=== PATIENT | female | born 2000 | race Caucasian/White ===

== ENCOUNTER 2023-11-15 14:18 | Observation (INO) | payer OTHER ==
[2023-11-15 16:06] LABS: Hematocrit 39.4 % (35-47); Hemoglobin 12.9 g/dL (12.0-16.0); Mean Cell Volume 92.7 fL (78-100); Mean Corpuscular Hemoglobin 30.4 pg (26-32); Mean Corpuscular Hgb Concent. 32.7 g/dL (32-36); Mean Platelet Volume 10.6 fL (7.5-11.0); Platelet Count 230 x10^3/uL (150-450); Red Blood Count 4.25 x10^6/uL (4.1-5.4); Red Cell Distribution Width 13.2 % (11.5-14.0)
[2023-11-15] MEDS: Lactated Ringers 1,000 ML IV ONE (16:08)
[2023-11-15 16:09] LABS: Appearance Cloudy (Clear); Bacteria None Seen /HPF (None Seen); Bilirubin Negative (Negative); Blood Negative (Negative); Epithelial Cells Rare /HPF (None Seen); Glucose, Urine Negative (Negative); Hyaline Casts NONE SEEN /LPF (0-2); Ketones Negative (Negative); Leukocyte Esterase Trace (Negative); Nitrite Negative (Negative); Protein,Urine Dip Negative (Negative); RBC 0-2 /HPF (0-5); Specific Gravity <=1.005 (1.005-1.030); Urobilinogen 0.2 mg/dL (0.2)
[2023-11-15 16:10] LABS: ADD URINE CULTURE? NO (NO)
[2023-11-15 16:19] LABS: Uric Acid 3.6 mg/dL (2.6-6.0)
[2023-11-15 16:20] LABS: ALBUMIN 4.2 g/dL (3.5-5.0); ANION GAP 11.6 MEQ/L (5-15); BILIRUBIN,TOTAL 0.4 mg/dL (0.2-1.3); Calcium 9.4 mg/dL (8.4-10.2); Creatinine 1 0.48 mg/dL (0.52-1.04); EST GLOMERULAR FILTRATION RATE 138.1 ML/MIN; Potassium 3.9 mmol/L (3.5-5.1); Total Protein 7.4 g/dL (6.3-8.2)
[2023-11-15 17:08] LABS: Creatinine, Urine Random 8.3 mg/dl; Protein Creatinine Ratio, Ran. 1.81 mg/mg (0.0-0.15)
--- NOTE | 2023-11-15 19:40 | PCM.HP ---
History of Present Illness - Chief Complaint Chief Complaint: FAll Date: 11/15/23 History of Present Illness: is a 23 year old female. She presented to the [facility] at the request of the office due to patient fall that ocurred around 1030 am. She was feeling well when she arrived and had no other complaints just wanted to get checked out. While being evaluated she had 2 elevated BP 140's/ 80's. She was also having some uterine irritability and some contractions. She denies any h/a, RUq pain, Vision disturbances. She denies any LOF, some increased vaginal discharge no vaginal Bleeding. and good FM. - Review of Systems Constitutional: No Fever, No Chills Eyes: No Symptoms Ears, Nose, & Throat: No Symptoms Respiratory: No Cough, No Short Of Breath Cardiac: No Chest Pain, No Edema, No Syncope Genitourinary Symptoms: No Dysuria Musculoskeletal: No Back Pain, No Neck Pain Skin: No Rash Neurological: No Dizziness, No Focal Weakness, No Sensory Changes Psychological: No Symptoms Endocrine: No Symptoms Hematologic/Lymphatic: No Symptoms Immunological/Allergic: No Symptoms Additional Findings: vaginal discharge Medications & Allergies Allergies/Adverse Reactions: Allergies Allergy/AdvReac Type Severity Reaction Status Date / Time No Known Drug Allergies Allergy Unverified 11/15/23 19:28 - Past Medical History Neurological History: No Pertinent History, Alzheimer's Disease, Dementia, Epilepsy, Migraines, Paralysis, Peripheral Neuropathy, Seizures, Stroke, TIA, Other ENT History: No Pertinent History, Cataracts, Glaucoma, Macular Degeneration, Ot her Cardiac History: No Pertinent History, Aneurysm, Angina, Arrhythmia, Congenital Heart Disease, Congestive Heart Failure, Coronary Artery Disease, Deep Vein Thrombosis, High Cholesterol, Hypertension, Myocardial Infarction (CT), Peripheral Vascular Disease, Other Respiratory History: No Pertinent History, Asthma, Bronchitis, CHF, COPD, Emphysema, Lung Cancer, Pneumonia, Pulmonary Embolism, Sleep Apnea, Tuberculosis, Other Endocrine Medical History: No Pertinent History, Crawley's Disease, Adrenal Insufficiency, Diabetes Type I, Diabetes Type II, Hyperthyroidism, Hypoglycemia, Hypothyroidism, Liver Disease, Thyroid Cancer, Other Musculoskelatal History: No Pertinent History, Arthritis, Bone Cancer, Degenerative Disk Disease, Fibromyalgia, Fractures, Muscular Dystrophy, Osteoarthritis, Osteoporosis, Rheumatoid Arthritis, Other GI Medical History: No Pertinent History, Cirrhosis, Colitis, Colorectal Cancer, Crohns Disease, Diverticulitis, Diverticulosis, Esophageal Disorder, GERD, Gallbladder Disease, GI Bleed, Hemorrhoids, Hepatitis, Hernia, Irritable Bowel, Liver Cancer, Pancreatitis, Polyps, Stomach Cancer, Ulcer, Other History: No Pertinent History, Bladder Cancer, Dialysis, Kidney Cancer, Renal Disease, Other Pyscho-Social History: No Pertinent History, Anxiety, Attention Deficit Disorder, Bipolar, Depression, Eating Disorders, Panic Disorder, Other - Female History Are you now?: Yes (33w 5 d) - Past Surgical History Past Surgical History: No - Social History Smoking Status: Never smoker - Social Determinants of Health Will the patient participate in the screening: Yes Do you worry about a steady place to live?: No Do you have any problems with any of the following?: No known problems In the past 12 months,have you had to go without utilities?: No Have you or anyone in your house had to go without enough: No Transportation Issues: No Has anyone in your support network made you feel unsafe?: No Does the patient want assistance with any of the above?: No - Physical Exam Vital Signs: Vital Signs - 24 hr Temp Pulse Resp BP BP Pulse Ox 11/15/23 17:02 98.2 F 18 141/84 100 11/15/23 16:00 83 18 128/73 100 11/15/23 15:50 91 H 18 139/88 100 11/15/23 15:30 87 19 141/83 100 11/15/23 14:35 98.2 F 18 141/84 100 General Appearance: no apparent distress, alert Neurologic Exam: alert, oriented x 3, cooperative, normal mood/affect, nml cerebellar function, nml station & gait, sensation nml, No motor deficits Eye Exam: PERRL/EOMI, eyes nml inspection Ears, Nose, Throat Exam: normal ENT inspection, pharynx normal, moist mucous membranes Respiratory Exam: normal breath sounds, lungs clear, No respiratory distress Cardiovascular Exam: regular rate/rhythm, normal heart sounds, normal peripheral pulses Gastrointestinal/Abdomen Exam: soft, normal bowel sounds, No tenderness, No mass Pelvic Exam: normal external exam, vaginal discharge, other (Cervical exam closed/thick/-3) Extremity Exam: normal inspection, normal range of motion, pelvis stable Skin Exam: normal color, warm, dry, No rash Results - Labs Lab/Micro Results: Lab Results-Last 24 Hours 11/15/23 11/15/23 11/15/23 Range/Units 16:00 16:00 16:00 WBC 12.0 H (4.0-10.5) x10^3/uL RBC 4.25 (4.1-5.4) x10^6/uL Hgb 12.9 (12.0-16.0) g/dL Hct 39.4 (35-47) % MCV 92.7 (78-100) fL MCH 30.4 (26-32) pg MCHC 32.7 (32-36) g/dL RDW 13.2 (11.5-14.0) % Plt Count 230 (150-450) x10^3/uL MPV 10.6 (7.5-11.0) fL Sodium 136 L (137-145) mmol/L Potassium 3.9 (3.5-5.1) mmol/L Chloride 107 (98-107) mmol/L Carbon Dioxide 22 (22-30) mmol/L Anion Gap 11.6 (5-15) MEQ/L BUN 8 (7-17) mg/dL Creatinine 0.48 L (0.52-1.04) mg/dL Estimated GFR 138.1 ML/MIN Glucose 82 (74-106) mg/dL Uric Acid 3.6 (2.6-6.0) mg/dL Calcium 9.4 (8.4-10.2) mg/dL Total Bilirubin 0.40 (0.2-1.3) mg/dL AST 23 (14-36) U/L ALT 22 (0-35) U/L Alkaline Phosphatase 171 H (38-126) U/L Lactate Dehydrogenase 179 (120-246) U/L Serum Total Protein 7.4 (6.3-8.2) g/dL Albumin 4.2 (3.5-5.0) g/dL Urine Color (Yellow) Urine Appearance (Clear) Urine pH (4.6-8.0) Ur Specific Callaway (1.005-1.030) Urine Protein (Negative) Urine Glucose (UA) (Negative) mg/dL Urine Ketones (Negative) Urine Blood (Negative) Urine Nitrite (Negative) Urine Bilirubin (Negative) Urine Urobilinogen (0.2) mg/dL Ur Leukocyte Esterase (Negative) U Hyaline Cast (Auto) (0-2) /LPF Urine Microscopic RBC (0-5) /HPF Urine Microscopic WBC (0-5) /HPF Ur Epithelial Cells (None Seen) /HPF Urine Bacteria (None Seen) /HPF Urine Culture Reflexed (NO) Ur Random Creatinine mg/dl U Random Total Protein (<12) mg/dl U Brilliant Prot/Creat Ratio (0.0-0.15) mg/mg 11/15/23 11/15/23 Range/Units 16:04 16:47 WBC (4.0-10.5) x10^3/uL RBC (4.1-5.4) x10^6/uL Hgb (12.0-16.0) g/dL Hct (35-47) % MCV (78-100) fL MCH (26-32) pg MCHC (32-36) g/dL RDW (11.5-14.0) % Plt Count (150-450) x10^3/uL MPV (7.5-11.0) fL Sodium (137-145) mmol/L Potassium (3.5-5.1) mmol/L Chloride (98-107) mmol/L Carbon Dioxide (22-30) mmol/L Anion Gap (5-15) MEQ/L BUN (7-17) mg/dL Creatinine (0.52-1.04) mg/dL Estimated GFR ML/MIN Glucose (74-106) mg/dL Uric Acid (2.6-6.0) mg/dL Calcium (8.4-10.2) mg/dL Total Bilirubin (0.2-1.3) mg/dL AST (14-36) U/L ALT (0-35) U/L Alkaline Phosphatase (38-126) U/L Lactate Dehydrogenase (120-246) U/L Serum Total Protein (6.3-8.2) g/dL Albumin (3.5-5.0) g/dL Urine Color Yellow (Yellow) Urine Appearance Cloudy A (Clear) Urine pH 7.0 (4.6-8.0) Ur Specific Callaway <=1.005 (1.005-1.030) Urine Protein Negative (Negative) Urine Glucose (UA) Negative (Negative) mg/dL Urine Ketones Negative (Negative) Urine Blood Negative (Negative) Urine Nitrite Negative (Negative) Urine Bilirubin Negative (Negative) Urine Urobilinogen 0.2 (0.2) mg/dL Ur Leukocyte Esterase Trace A (Negative) U Hyaline Cast (Auto) NONE SEEN (0-2) /LPF Urine Microscopic RBC 0-2 (0-5) /HPF Urine Microscopic WBC 3-5 (0-5) /HPF Ur Epithelial Cells Rare (None Seen) /HPF Urine Bacteria None Seen (None Seen) /HPF Urine Culture Reflexed NO (NO) Ur Random Creatinine 8.3 mg/dl U Random Total Protein 15.0 (<12) mg/dl U Brilliant Prot/Creat Ratio 1.81 H (0.0-0.15) mg/mg Assessment/Plan (1) with 33 completed weeks gestation Current Visit: Yes Status: Acute Assessment & Plan: Will continue to monitor for PTL with continuous monitoring. continue vitamin Code(s): Z3A.33 - 33 WEEKS GESTATION OF (2) Elevated blood-pressure reading without diagnosis of hypertension Current Visit: Yes Status: Acute Assessment & Plan: Patient had 2 elevated BP in mild range and Pre-eclampsia labs were done. All with in normal limits however PCR was reported as 1.8 with negative proteinuria on her UA. Clinically this does not really make sense and without symptoms and normalized BP after the first couple of BP after arriving, I am going to continue to monitor and collect a 24 hour urine for protein. I performed a speculum vaginal exam for possible Rupture of membranes as this could cause elevated PCR. She has also been janna and vag panel was performed and cervical exam showed she was closed. Will continue to monitor she states she does not really feel pain occasional tightening Code(s): R03.0 - ELEVATED BLOOD-PRESSURE READING, W/O DIAGNOSIS OF HTN (3) uterine contractions Current Visit: Yes Status: Acute Assessment & Plan: Will continue to monitor at this time there is no cervical change. If contractions worsen will consider tocolytic and steroids she is over 32 weeks mag not indicated for neuroprotection but could be used as tocolytic if needed for transfer. Code(s): O47.00 - FALSE LABOR BEFORE 37 COMPLETED WEEKS OF GEST, UNSP TRI
[2023-11-15 19:51] LABS: AMNISURE TEST RESULTS NEGATIVE (NEGATIVE)
[2023-11-15 20:39] LABS: Candida Group NOT DETECTED (NEGATIVE); Candida glab/krus NOT DETECTED (NEGATIVE)
[2023-11-16] MEDS: BENADRYL 25 MG CAPSULE PO PRN (01:05)
[2023-11-16 07:36] VITALS: RESP 18; TEMP 98; O2SAT 100
[2023-11-16] MEDS: TYLENOL EXTRA STRENGTH 500 MG PO PRN (13:55)
[2023-11-16 15:31] VITALS: BP 130/79; PULSE 100
--- NOTE | 2023-11-16 17:35 | PCM.NOTE ---
Date and Time: 11/16/23 1729 Subjective Assessment: Pt doing well today and was seen around 1230 pm. She is feeling good movement no ctx, no pre-eclampsia symptoms. No VB, VD. All testing performed last night was negative and discussed with patient. She is still undergoing 24 hour urine collection done at 1735 Objective Exam General Appearance: no apparent distress, alert Neurologic Exam: alert, oriented x 3, cooperative, normal mood/affect, nml cerebellar function, sensation nml, No motor deficits Skin Exam: normal color, warm, dry Respiratory Exam: normal breath sounds, lungs clear, No respiratory distress Cardiovascular Exam: regular rate/rhythm, normal heart sounds Extremity Exam: normal inspection (FHT Cat 1 [place]man: None), normal range of motion OBJECTIVE DATA Vital Signs: Vital Signs - 24 hr Temp Pulse Resp BP BP Pulse Ox 11/16/23 15:30 100 H 18 130/79 100 11/16/23 14:00 18 11/16/23 13:00 98.0 F 98 H 18 118/63 11/16/23 12:00 98.0 F 98 H 18 118/63 11/16/23 11:00 98.0 F 98 H 18 118/63 100 11/16/23 10:00 98.0 F 100 11/16/23 09:00 98.0 F 100 11/16/23 08:00 98.0 F 88 18 125/57 100 11/16/23 07:35 98.0 F 88 18 120/57 100 11/16/23 07:00 16 98 11/16/23 06:00 16 98 11/16/23 05:00 16 98 11/16/23 04:00 16 101/53 98 11/16/23 03:00 79 18 101/53 98 11/16/23 01:58 18 11/16/23 01:00 62 18 98 11/16/23 00:00 62 18 98 11/15/23 23:47 62 18 121/76 98 11/15/23 23:00 16 83 L 11/15/23 22:07 16 83 L 11/15/23 22:00 16 83 L 11/15/23 21:00 16 83 L 11/15/23 20:49 16 83 L 11/15/23 20:27 16 83 L 11/15/23 19:40 16 138/73 83 L 11/15/23 19:25 95 H 16 132/75 11/15/23 19:10 98.3 F 16 132/79 99 Pain Assessment - Last Documented Pain Intensity 4 Pain Scale Used 0-10 Pain Scale Intake and Output: Intake & Output 11/14/23 11/15/23 11/16/23 11/17/23 11:59 11:59 11:59 11:59 Intake Total 5900 Output Total 2700 400 Balance 3200 -400 Weight 77.111 kg Lab Results: Lab Results-Last 24 Hours 11/15/23 Range/Units 19:30 Vaginal Caroline Group NOT DETECTED (NEGATIVE) Caroline species NOT DETECTED (NEGATIVE) T. vaginalis (PCR) NOT DETECTED (NEGATIVE) Bact vaginosis (PCR) NEGATIVE (NEGATIVE) Assessment/Plan (1) with 33 completed weeks gestation Current Visit: Yes Status: Acute Assessment & Plan: Pt is having no contractions will continue Q12 hour NST. Code(s): Z3A.33 - 33 WEEKS GESTATION OF (2) Elevated blood-pressure reading without diagnosis of hypertension Current Visit: Yes Status: Acute Assessment & Plan: 24 hour urine is in progress up at 1735 BP had been normotensive since after 11/15 no further elevated BP. She had 3 total Elevated BP on 11/15 1435 141/84, 1530 141/83, 1720 141/84 Will continue to monitor NSt changed to 2 x daily. Will await resutls of 24 hour urine for plan Of note shortly after the patient was evaluated she did have a headache and asked for tylenol. The patients headache resolved Code(s): R03.0 - ELEVATED BLOOD-PRESSURE READING, W/O DIAGNOSIS OF HTN (3) uterine contractions Current Visit: Yes Status: Acute Assessment & Plan: Pt stopped janna and toco remains quiet at this time Code(s): O47.00 - FALSE LABOR BEFORE 37 COMPLETED WEEKS OF GEST, UNSP TRI
[2023-11-16 18:43] LABS: 24 HR TOT. PROTEIN CALCULATION 0.253 g/Day (0.04-0.23)
== END 2023-11-16 18:55 | disposition home or self-care (01) ==
LOC: OB 14:18 → OB.NST 14:19 → EDSTATUS 14:23
PROVIDERS: ADMIT Family Medicine; ATTEND Family Medicine
DX: Z34.03 Encounter for supervision of normal first pregnancy, third trimester (principal); Z3A.33 33 weeks gestation of pregnancy
CPT/HCPCS: 36415; 80053; 81001; 81050; 82570; 83615; 84112; 84156; 84550; 85027; 87481; 87661; 87801; A9270-GY

== ENCOUNTER 2023-12-07 07:38 | Inpatient (IN) | payer OTHER ==
[2023-12-07] MEDS ORDERED: Nubain 10 MG/ML IV PRN (22:00)
[2023-12-07] MEDS ORDERED: TYLENOL EXTRA STRENGTH 500 MG PO PRN (22:00)
[2023-12-07] MEDS ORDERED: STADOL 2 MG IV PRN (22:00)
[2023-12-07] MEDS ORDERED: Zofran 4 MG/2 ML VIAL IV PRN ×2 (22:00→23:55)
[2023-12-07 23:21] LABS: Absolute Neutrophil Ct (ANC) 7.04 x10^3/uL (1.4-6.9); BASOPHIL % 0.2 % (0.0-0.4); Basophil (Absolute #) 0.02 x10^3/uL (0-0.4); Hematocrit 37.5 % (35-47); Hemoglobin 12.1 g/dL (12.0-16.0); IMMATURE GRAN # 0.07 x10^3u/L (0.00-0.03); IMMATURE GRAN % 0.7 % (0.00-0.4); Lymphocyte (Absolute #) 1.92 x10^3/uL (1.0-4.6); Lymphocytes % 19.5 % (24.0-44.0); Mean Cell Volume 92.4 fL (78-100); Mean Corpuscular Hemoglobin 29.8 pg (26-32); Mean Corpuscular Hgb Concent. 32.3 g/dL (32-36); Mean Platelet Volume 10.9 fL (7.5-11.0); Monocyte (Absolute #) 0.68 x10^3/uL (0.0-1.3); Monocytes % 6.9 % (0.0-12.0); Neutrophil % 71.7 % (36.0-66.0); Platelet Count 228 x10^3/uL (150-450); Red Blood Count 4.06 x10^6/uL (4.1-5.4); Red Cell Distribution Width 13.5 % (11.5-14.0); White Blood Count 9.8 x10^3/uL (4.0-10.5)
[2023-12-07] MEDS ORDERED: BENADRYL 25 MG CAPSULE PO PRN (23:32)
[2023-12-07 23:35] LABS: ALBUMIN 3.5 g/dL (3.5-5.0); ANION GAP 12.6 MEQ/L (5-15); BILIRUBIN,TOTAL 0.3 mg/dL (0.2-1.3); Calcium 9.1 mg/dL (8.4-10.2); Creatinine 1 0.64 mg/dL (0.52-1.04); EST GLOMERULAR FILTRATION RATE 128.9 ML/MIN; Potassium 3.9 mmol/L (3.5-5.1); Total Protein 6.5 g/dL (6.3-8.2); Uric Acid 4.2 mg/dL (2.6-6.0)
[2023-12-08] MEDS: Lactated Ringers 1,000 ML IV SCH
[2023-12-08 00:03] LABS: ABO TYPING A; Antibody Screen NEGATIVE (NEGATIVE); RH TYPING POSITIVE
[2023-12-08 02:09] LABS: Amphetamine,Urine SEE SEPARATE REPORT (NEGATIVE); Barbiturate,Urine SEE SEPARATE REPORT (NEGATIVE); Benzodiazepine,Urine SEE SEPARATE REPORT (NEGATIVE); Cocaine,Urine SEE SEPARATE REPORT (NEGATIVE); Methadone,Urine SEE SEPARATE REPORT (NEGATIVE); Opiate,Urine SEE SEPARATE REPORT (NEGATIVE); PCP,Urine SEE SEPARATE REPORT (NEGATIVE); THC,Urine SEE SEPARATE REPORT (NEGATIVE)
[2023-12-08] MEDS: TYLENOL 325 MG PO PRN (13:36)
--- NOTE | 2023-12-08 14:25 | PCM.HP ---
History of Present Illness - Chief Complaint Chief Complaint: IUP Date: 12/08/23 History of Present Illness: is a 23 year old female. She is at 37 weeks arrived for medical induction of labor secondary to Pre-eclampsia without severe features. She was diagnosed around 35 weeks and has been managed as an outpatient until 37 weeks. She had 24 hour urine of 480. She has had occasional headache and treated with tylenol and resolved. No other vision changes or RUQ pain. Good FM has had scant spotting from vaginal exam. - Review of Systems Constitutional: No Fever, No Chills Eyes: No Symptoms Ears, Nose, & Throat: No Symptoms Respiratory: No Cough, No Short Of Breath Cardiac: No Chest Pain, No Edema, No Syncope Abdominal/Gastrointestinal: Other (), No Abdominal Pain, No Nausea, No Vomiting, No Diarrhea Genitourinary Symptoms: No Dysuria Musculoskeletal: No Back Pain, No Neck Pain Skin: No Rash Neurological: No Dizziness, No Focal Weakness, No Sensory Changes Psychological: No Symptoms Endocrine: No Symptoms Hematologic/Lymphatic: No Symptoms Immunological/Allergic: No Symptoms Medications & Allergies Home Medications: Home Medication List Pnv 119/Iron Fum/Folic Acid [ 19 Tablet] 1 each PO DAILY 11/15/23 [History Confirmed 12/07/23] Allergies/Adverse Reactions: Allergies Allergy/AdvReac Type Severity Reaction Status Date / Time No Known Drug Allergies Allergy Verified 11/30/23 14:18 - Past Medical History Neurological History: No Pertinent History, Alzheimer's Disease, Dementia, Epilepsy, Migraines, Paralysis, Peripheral Neuropathy, Seizures, Stroke, TIA, Other ENT History: No Pertinent History, Cataracts, Glaucoma, Macular Degeneration, Other Cardiac History: No Pertinent History, Aneurysm, Angina, Arrhythmia, Congenital Heart Disease, Congestive Heart Failure, Coronary Artery Disease, Deep Vein Thrombosis, High Cholesterol, Hypertension, Myocardial Infarction ([place]), Peripheral Vascular Disease, Other Respiratory History: No Pertinent History, Asthma, Bronchitis, CHF, COPD, Emphysema, Lung Cancer, Pneumonia, Pulmonary Embolism, Sleep Apnea, Tuberculosis, Other Endocrine Medical History: No Pertinent History, Hitchcock's Disease, Adrenal Insufficiency, Diabetes Type I, Diabetes Type II, Hyperthyroidism, Hypoglycemia, Hypothyroidism, Liver Disease, Thyroid Cancer, Other Musculoskelatal History: No Pertinent History, Arthritis, Bone Cancer, Degenerative Disk Disease, Fibromyalgia, Fractures, Muscular Dystrophy, Osteoarthritis, Osteoporosis, Rheumatoid Arthritis, Other GI Medical History: No Pertinent History, Cirrhosis, Colitis, Colorectal Cancer, Crohns Disease, Diverticulitis, Diverticulosis, Esophageal Disorder, GERD, Gallbladder Disease, GI Bleed, Hemorrhoids, Hepatitis, Hernia, Irritable Bowel, Liver Cancer, Pancreatitis, Polyps, Stomach Cancer, Ulcer, Other History: No Pertinent History, Bladder Cancer, Dialysis, Kidney Cancer, Renal Disease, Other Pyscho-Social History: No Pertinent History, Anxiety, Attention Deficit Disorder, Bipolar, Depression, Eating Disorders, Panic Disorder, Other Reproductive Disorders: No Pertinent History - Female History Expected Date of Delivery: 12/29/23 - Past Surgical History Past Surgical History: No - Social History Smoking Status: Never smoker Exposure to second hand smoke: No Alcohol: None Drug Use: none - Social Determinants of Health Will the patient participate in the screening: Yes Do you worry about a steady place to live?: No Do you have any problems with any of the following?: No known problems In the past 12 months,have you had to go without utilities?: No Have you or anyone in your house had to go without enough: No Transportation Issues: No Has anyone in your support network made you feel unsafe?: No Does the patient want assistance with any of the above?: No - Physical Exam Vital Signs: Vital Signs - 24 hr Temp Pulse Resp BP BP Pulse Ox 12/08/23 12:00 98.0 F 90 18 144/79 144/79 100 12/08/23 11:00 18 12/08/23 10:00 86 18 132/72 132/72 12/08/23 08:00 97.7 F 84 18 122/82 122/82 100 12/08/23 07:00 81 18 12/08/23 06:00 81 18 12/08/23 05:42 81 18 108/58 12/08/23 05:00 81 18 12/08/23 04:00 98.1 F 78 18 142/88 142/88 12/08/23 03:00 98.1 F 78 18 12/08/23 02:20 73 127/62 12/08/23 02:00 18 12/08/23 01:03 105 H 18 12/08/23 01:00 98.1 F 82 18 125/87 125/87 12/08/23 00:30 85 18 117/60 12/08/23 00:12 105 H 18 12/08/23 00:00 80 18 118/62 12/07/23 23:45 76 113/60 12/07/23 23:30 85 18 115/66 12/07/23 23:15 88 18 129/65 12/07/23 23:00 105 H 18 128/66 12/07/23 22:45 98.1 F 100 H 18 General Appearance: no apparent distress Neurologic Exam: alert, oriented x 3, cooperative, normal mood/affect, nml c erebellar function, nml station & gait, sensation nml, No motor deficits Ears, Nose, Throat Exam: normal ENT inspection, TMs normal, pharynx normal, moist mucous membranes Neck Exam: normal inspection, non-tender, supple, full range of motion Respiratory Exam: normal breath sounds, lungs clear, No respiratory distress Cardiovascular Exam: regular rate/rhythm, normal heart sounds, normal peripheral pulses Gastrointestinal/Abdomen Exam: soft, normal bowel sounds, No tenderness, No mass Pelvic Exam: other (SVE 1-2/80%/-1) Back Exam: normal inspection, normal range of motion, No CVA tenderness, No vertebral tenderness Extremity Exam: normal inspection, normal range of motion, pelvis stable Skin Exam: normal color, warm, dry, No rash Results - Labs Lab/Micro Results: Lab Results-Last 24 Hours 12/07/23 12/07/23 12/07/23 Range/Units 22:59 23:18 23:18 WBC 9.8 (4.0-10.5) x10^3/uL RBC 4.06 L (4.1-5.4) x10^6/uL Hgb 12.1 (12.0-16.0) g/dL Hct 37.5 (35-47) % MCV 92.4 (78-100) fL MCH 29.8 (26-32) pg MCHC 32.3 (32-36) g/dL RDW 13.5 (11.5-14.0) % Plt Count 228 (150-450) x10^3/uL MPV 10.9 (7.5-11.0) fL Gran % 71.7 H (36.0-66.0) % Immature Gran % (Auto) 0.7 H (0.00-0.4) % Nucleat RBC Rel Count 0.0 (0.00-0.1) % Eos # (Auto) 0.10 (0-0.5) x10^3/uL Immature Gran # (Auto) 0.07 H (0.00-0.03) x10^3u/L Absolute Lymphs (auto) 1.92 (1.0-4.6) x10^3/uL Absolute Monos (auto) 0.68 (0.0-1.3) x10^3/uL Absolute Nucleated RBC 0.00 (0.00-0.01) x10^3u/L Lymphocytes % 19.5 L (24.0-44.0) % Monocytes % 6.9 (0.0-12.0) % Eosinophils % 1.0 (0.00-5.0) % Basophils % 0.2 (0.0-0.4) % Absolute Granulocytes 7.04 H (1.4-6.9) x10^3/uL Basophils # 0.02 (0-0.4) x10^3/uL Sodium 136 (135-145) mmol/L Potassium 3.9 (3.5-5.1) mmol/L Chloride 105 (98-107) mmol/L Carbon Dioxide 22 (22-30) mmol/L Anion Gap 12.6 (5-15) MEQ/L BUN 13 (7-17) mg/dL Creatinine 0.64 (0.52-1.04) mg/dL Estimated GFR 128.9 ML/MIN Glucose 92 (74-106) mg/dL Uric Acid 4.2 (2.6-6.0) mg/dL Calcium 9.1 (8.4-10.2) mg/dL Total Bilirubin 0.30 (0.2-1.3) mg/dL AST 24 (14-36) U/L ALT 18 (0-35) U/L Alkaline Phosphatase 222 H (38-126) U/L Lactate Dehydrogenase 163 (120-246) U/L Serum Total Protein 6.5 (6.3-8.2) g/dL Albumin 3.5 (3.5-5.0) g/dL Urine Opiates Level SEE SEPARATE REPORT (NEGATIVE) Ur Methadone SEE SEPARATE REPORT (NEGATIVE) Urine Barbiturates SEE SEPARATE REPORT (NEGATIVE) Ur Phencyclidine (PCP) SEE SEPARATE REPORT (NEGATIVE) Urine Amphetamine SEE SEPARATE REPORT (NEGATIVE) U Benzodiazepine Level SEE SEPARATE REPORT (NEGATIVE) Urine Cocaine SEE SEPARATE REPORT (NEGATIVE) Urine Marijuana (THC) SEE SEPARATE REPORT (NEGATIVE) ABO Group Rh Factor Antibody Screen (NEGATIVE) 12/07/23 Range/Units 23:18 WBC (4.0-10.5) x10^3/uL RBC (4.1-5.4) x10^6/uL Hgb (12.0-16.0) g/dL Hct (35-47) % MCV (78-100) fL MCH (26-32) pg MCHC (32-36) g/dL RDW (11.5-14.0) % Plt Count (150-450) x10^3/uL MPV (7.5-11.0) fL Gran % (36.0-66.0) % Immature Gran % (Auto) (0.00-0.4) % Nucleat RBC Rel Count (0.00-0.1) % Eos # (Auto) (0-0.5) x10^3/uL Immature Gran # (Auto) (0.00-0.03) x10^3u/L Absolute Lymphs (auto) (1.0-4.6) x10^3/uL Absolute Monos (auto) (0.0-1.3) x10^3/uL Absolute Nucleated RBC (0.00-0.01) x10^3u/L Lymphocytes % (24.0-44.0) % Monocytes % (0.0-12.0) % Eosinophils % (0.00-5.0) % Basophils % (0.0-0.4) % Absolute Granulocytes (1.4-6.9) x10^3/uL Basophils # (0-0.4) x10^3/uL Sodium (135-145) mmol/L Potassium (3.5-5.1) mmol/L Chloride (98-107) mmol/L Carbon Dioxide (22-30) mmol/L Anion Gap (5-15) MEQ/L BUN (7-17) mg/dL Creatinine (0.52-1.04) mg/dL Estimated GFR ML/MIN Glucose (74-106) mg/dL Uric Acid (2.6-6.0) mg/dL Calcium (8.4-10.2) mg/dL Total Bilirubin (0.2-1.3) mg/dL AST (14-36) U/L ALT (0-35) U/L Alkaline Phosphatase (38-126) U/L Lactate Dehydrogenase (120-246) U/L Serum Total Protein (6.3-8.2) g/dL Albumin (3.5-5.0) g/dL Urine Opiates Level (NEGATIVE) Ur Methadone (NEGATIVE) Urine Barbiturates (NEGATIVE) Ur Phencyclidine (PCP) (NEGATIVE) Urine Amphetamine (NEGATIVE) U Benzodiazepine Level (NEGATIVE) Urine Cocaine (NEGATIVE) Urine Marijuana (THC) (NEGATIVE) ABO Group A Rh Factor POSITIVE Antibody Screen NEGATIVE (NEGATIVE) Assessment/Plan (1) with 37 weeks completed gestation Current Visit: Yes Status: Acute Code(s): Z3A.37 - 37 WEEKS GESTATION OF (2) Pre-eclampsia Current Visit: Yes Status: Acute Assessment & Plan: Pt admitted last night for Medical induction of labor due to pre-eclampsia without severe features. She is now s/p Cytotec orally x 4. She is janna every 3 -4 minutes rating them as a 2/10. SVE 1-2/80/-1 change from my examine yesterday in the office. BP have been stable some in mild range no severe symptoms or features. Tristar cervical ripening balloon placed with 80ml/80ml taped to leg. Pt tolerated well. FHT reviewed and CAt 1 baseline 130. Will start Pitocin around 4 pm. discussed progress with patient and her . Questions answered. Pre-eclampsia labs reviewed and normal HGb 12.1 Code(s): O14.90 - UNSPECIFIED PRE-ECLAMPSIA, UNSPECIFIED TRIMESTER
[2023-12-08] MEDS ORDERED: Nubain 10 MG/ML IV PRN (15:53)
[2023-12-08] MEDS: Phenergan 25 MG INJ*** 12.5 MG in Sodium Chloride 0.9% 100 ML IV PRN (16:19)
[2023-12-08] MEDS: STADOL 2 MG IV PRN (16:19)
[2023-12-08] MEDS: PITOCIN 30 UNITS/ LR 500 ML 30 UNITS/500 ML PLAST..BAG IV SCH (17:02)
[2023-12-08] MEDS ORDERED: MOTRIN 400 MG PO PRN (22:00)
[2023-12-08] MEDS ORDERED: TYLENOL EXTRA STRENGTH 500 MG PO PRN (22:00)
[2023-12-08] MEDS ORDERED: Anucort-HC SUPPOSITORY PR PRN (22:00)
[2023-12-08] MEDS ORDERED: Docusate Sodium 100 MG PO SCH (22:00)
[2023-12-08] MEDS ORDERED: LANSINOH 40 GM TOP PRN (22:00)
[2023-12-08] MEDS ORDERED: Mylicon 80MG PO PRN (22:00)
[2023-12-08] MEDS ORDERED: Dulcolax 10 MG SUPP PR PRN (22:00)
[2023-12-08] MEDS ORDERED: Dermoplast Spray TP PRN (22:00)
[2023-12-08] MEDS ORDERED: FERREX 150 PO SCH (22:00)
--- NOTE | 2023-12-08 22:03 | PCM.NOTE ---
Date and Time: 12/08/232155 Subjective Assessment: Pt is 23 yo G1 at 37 weeks under going medical indcution of labor for Pre- eclampsia. She is now S/P Cytotec 25 po x 4 doses. Then cervical ripening balloon was placed around 3 pm. She was started o Pitocin at up to 6 milliunits. She has had 2 doses of Stadol with Iv phenergan for pain. She was not ready for her epidural. She tolerated the balloon well. She is also having some bloody show. She denies any pre-eclampsia symptoms. Objective Exam Pelvic Exam: other (SVE: The vaginal balloon was deflated and the uterine balloon was in the vagina. the balloon was removed. Examination revealed the cervix was 4-5 cm/80%/-1 station. BBOW palpated. FHT 130 cat 1 [place] Q2 -5 irregular.) Objective Data Vital Signs: Vital Signs - 24 hr Temp Pulse Resp BP BP Pulse Ox 12/08/23 21:42 98.1 F 82 18 142/83 12/08/23 21:01 98.1 F 82 18 142/83 12/08/23 21:00 98.1 F 78 18 121/60 12/08/23 20:59 98.1 F 82 18 142/83 12/08/23 20:30 98.1 F 67 18 131/81 12/08/23 20:00 98.1 F 78 18 134/76 12/08/23 19:30 98.1 F 82 18 142/83 12/08/23 19:00 59 L 18 123/78 12/08/23 18:30 59 L 18 123/78 12/08/23 18:00 69 18 124/76 124/76 100 12/08/23 16:00 98.3 F 80 18 120/65 120/65 94 L 12/08/23 14:00 79 18 134/81 134/81 98 12/08/23 12:00 98.0 F 90 18 144/79 144/79 100 12/08/23 11:00 18 12/08/23 10:00 86 18 132/72 132/72 12/08/23 08:00 97.7 F 84 18 122/82 122/82 100 12/08/23 07:00 81 18 12/08/23 06:00 81 18 12/08/23 05:42 81 18 108/58 12/08/23 05:00 81 18 12/08/23 04:00 98.1 F 78 18 142/88 142/88 12/08/23 03:00 98.1 F 78 18 12/08/23 02:20 73 127/62 12/08/23 02:00 18 12/08/23 01:03 105 H 18 12/08/23 01:00 98.1 F 82 18 125/87 125/87 12/08/23 00:30 85 18 117/60 12/08/23 00:12 105 H 18 12/08/23 00:00 80 18 118/62 12/07/23 23:45 76 113/60 12/07/23 23:30 85 18 115/66 12/07/23 23:15 88 18 129/65 12/07/23 23:00 105 H 18 128/66 12/07/23 22:45 98.1 F 100 H 18 Pain Assessment - Last Documented Pain Intensity [Lower] 4 Pain Intensity 6 Pain Scale Used 0-10 Pain Scale Intake and Output: Intake & Output 12/06/23 12/07/23 12/08/23 12/09/23 11:59 11:59 11:59 11:59 Weight 78.925 kg Lab Results: Lab Results-Last 24 Hours 12/07/23 12/07/23 12/07/23 Range/Units 22:59 23:18 23:18 WBC 9.8 (4.0-10.5) x10^3/uL RBC 4.06 L (4.1-5.4) x10^6/uL Hgb 12.1 (12.0-16.0) g/dL Hct 37.5 (35-47) % MCV 92.4 (78-100) fL MCH 29.8 (26-32) pg MCHC 32.3 (32-36) g/dL RDW 13.5 (11.5-14.0) % Plt Count 228 (150-450) x10^3/uL MPV 10.9 (7.5-11.0) fL Gran % 71.7 H (36.0-66.0) % Immature Gran % (Auto) 0.7 H (0.00-0.4) % Nucleat RBC Rel Count 0.0 (0.00-0.1) % Eos # (Auto) 0.10 (0-0.5) x10^3/uL Immature Gran # (Auto) 0.07 H (0.00-0.03) x10^3u/L Absolute Lymphs (auto) 1.92 (1.0-4.6) x10^3/uL Absolute Monos (auto) 0.68 (0.0-1.3) x10^3/uL Absolute Nucleated RBC 0.00 (0.00-0.01) x10^3u/L Lymphocytes % 19.5 L (24.0-44.0) % Monocytes % 6.9 (0.0-12.0) % Eosinophils % 1.0 (0.00-5.0) % Basophils % 0.2 (0.0-0.4) % Absolute Granulocytes 7.04 H (1.4-6.9) x10^3/uL Basophils # 0.02 (0-0.4) x10^3/uL Sodium 136 (135-145) mmol/L Potassium 3.9 (3.5-5.1) mmol/L Chloride 105 (98-107) mmol/L Carbon Dioxide 22 (22-30) mmol/L Anion Gap 12.6 (5-15) MEQ/L BUN 13 (7-17) mg/dL Creatinine 0.64 (0.52-1.04) mg/dL Estimated GFR 128.9 ML/MIN Glucose 92 (74-106) mg/dL Uric Acid 4.2 (2.6-6.0) mg/dL Calcium 9.1 (8.4-10.2) mg/dL Total Bilirubin 0.30 (0.2-1.3) mg/dL AST 24 (14-36) U/L ALT 18 (0-35) U/L Alkaline Phosphatase 222 H (38-126) U/L Lactate Dehydrogenase 163 (120-246) U/L Serum Total Protein 6.5 (6.3-8.2) g/dL Albumin 3.5 (3.5-5.0) g/dL Urine Opiates Level SEE SEPARATE REPORT (NEGATIVE) Ur Methadone SEE SEPARATE REPORT (NEGATIVE) Urine Barbiturates SEE SEPARATE REPORT (NEGATIVE) Ur Phencyclidine (PCP) SEE SEPARATE REPORT (NEGATIVE) Urine Amphetamine SEE SEPARATE REPORT (NEGATIVE) U Benzodiazepine Level SEE SEPARATE REPORT (NEGATIVE) Urine Cocaine SEE SEPARATE REPORT (NEGATIVE) Urine Marijuana (THC) SEE SEPARATE REPORT (NEGATIVE) ABO Group Rh Factor Antibody Screen (NEGATIVE) 12/07/23 Range/Units 23:18 WBC (4.0-10.5) x10^3/uL RBC (4.1-5.4) x10^6/uL Hgb (12.0-16.0) g/dL Hct (35-47) % MCV (78-100) fL MCH (26-32) pg MCHC (32-36) g/dL RDW (11.5-14.0) % Plt Count (150-450) x10^3/uL MPV (7.5-11.0) fL Gran % (36.0-66.0) % Immature Gran % (Auto) (0.00-0.4) % Nucleat RBC Rel Count (0.00-0.1) % Eos # (Auto) (0-0.5) x10^3/uL Immature Gran # (Auto) (0.00-0.03) x10^3u/L Absolute Lymphs (auto) (1.0-4.6) x10^3/uL Absolute Monos (auto) (0.0-1.3) x10^3/uL Absolute Nucleated RBC (0.00-0.01) x10^3u/L Lymphocytes % (24.0-44.0) % Monocytes % (0.0-12.0) % Eosinophils % (0.00-5.0) % Basophils % (0.0-0.4) % Absolute Granulocytes (1.4-6.9) x10^3/uL Basophils # (0-0.4) x10^3/uL Sodium (135-145) mmol/L Potassium (3.5-5.1) mmol/L Chloride (98-107) mmol/L Carbon Dioxide (22-30) mmol/L Anion Gap (5-15) MEQ/L BUN (7-17) mg/dL Creatinine (0.52-1.04) mg/dL Estimated GFR ML/MIN Glucose (74-106) mg/dL Uric Acid (2.6-6.0) mg/dL Calcium (8.4-10.2) mg/dL Total Bilirubin (0.2-1.3) mg/dL AST (14-36) U/L ALT (0-35) U/L Alkaline Phosphatase (38-126) U/L Lactate Dehydrogenase (120-246) U/L Serum Total Protein (6.3-8.2) g/dL Albumin (3.5-5.0) g/dL Urine Opiates Level (NEGATIVE) Ur Methadone (NEGATIVE) Urine Barbiturates (NEGATIVE) Ur Phencyclidine (PCP) (NEGATIVE) Urine Amphetamine (NEGATIVE) U Benzodiazepine Level (NEGATIVE) Urine Cocaine (NEGATIVE) Urine Marijuana (THC) (NEGATIVE) ABO Group A Rh Factor POSITIVE Antibody Screen NEGATIVE (NEGATIVE) Assessment/Plan (1) with 37 weeks completed gestation Current Visit: Yes Status: Acute Code(s): Z3A.37 - 37 WEEKS GESTATION OF (2) Pre-eclampsia Current Visit: Yes Status: Acute Code(s): O14.90 - UNSPECIFIED PRE- ECLAMPSIA, UNSPECIFIED TRIMESTER
[2023-12-09] MEDS ORDERED: Ephedrine Sulfate 50 MG/ML IV PRN (00:58)
[2023-12-09] MEDS: Lactated Ringers 1,000 ML IV ONE (01:00)
[2023-12-09] MEDS: FENTANYL 2 MCG-BUPIV 0.125%-NS 250 ML Epidur 250 ML EPIDURAL SCH (01:00)
[2023-12-09 03:13] LABS: Appearance Clear (Clear); Bacteria None Seen /HPF (None Seen); Bilirubin Negative (Negative); Blood Negative (Negative); Epithelial Cells None Seen /HPF (None Seen); Glucose, Urine Negative (Negative); Hyaline Casts NONE SEEN /LPF (0-2); Ketones 40 (Negative); Leukocyte Esterase Negative (Negative); Nitrite Negative (Negative); Ph 6.5 (4.6-8.0); Protein,Urine Dip Negative (Negative); RBC 0-2 /HPF (0-5); Urobilinogen 0.2 mg/dL (0.2)
[2023-12-09 03:15] LABS: ADD URINE CULTURE? NO (NO)
--- NOTE | 2023-12-09 07:52 | PCM.NOTE ---
Date and Time: 12/09/23746 Subjective Assessment: Pt seen and examined. She is doing well comfortable with Epidural. denies Headach, RUQ pain or vision changes. Bp stable Pitocin on 18 milliunits/min Objective Exam Pelvic Exam: other (SVE: 6cm/90%/-1 -0 FHT: 140 Cat 1 [place] 2 AROM performed and IUPC placed.) Objective Data Vital Signs: Vital Signs - 24 hr Temp Pulse Resp BP BP Pulse Ox 12/09/23 06:59 98.4 F 102 H 18 111/59 12/09/23 06:43 98.4 F 73 18 101/54 12/09/23 06:42 98.4 F 83 18 109/53 12/09/23 06:35 98.4 F 83 18 109/53 12/09/23 06:30 98.4 F 83 18 109/53 12/09/23 06:00 98.4 F 94 H 18 126/60 12/09/23 05:30 97 H 18 111/57 12/09/23 05:00 72 18 110/55 12/09/23 04:35 98.1 F 87 18 12/09/23 04:30 98.1 F 87 18 99/49 12/09/23 04:05 98.1 F 87 18 99/49 12/09/23 03:45 98.1 F 84 18 100/50 12/09/23 03:35 98.1 F 93 H 18 129/71 12/09/23 03:10 98.1 F 93 H 18 129/71 12/09/23 03:00 98.1 F 93 H 18 129/71 12/09/23 02:53 98.1 F 93 H 18 129/71 12/09/23 02:30 98.1 F 98 H 16 129/71 134/69 93 L 12/09/23 02:27 112 H 18 135/73 94 L 12/09/23 02:24 101 H 16 135/66 12/09/23 02:20 106 H 18 127/58 94 L 12/09/23 02:13 108 H 16 117/58 96 12/09/23 02:10 109 H 16 125/63 100 12/09/23 02:07 118 H 16 101/69 95 12/09/23 02:04 92 H 16 133/70 100 12/09/23 02:02 102 H 16 132/67 99 12/09/23 02:00 98.1 F 93 H 18 129/71 12/09/23 01:59 94 H 18 134/64 100 12/09/23 01:56 102 H 18 130/61 100 12/09/23 01:53 100 H 18 145/65 99 12/09/23 01:51 113 H 16 136/72 100 12/09/23 01:30 98.1 F 93 H 18 129/71 12/09/23 01:00 98.1 F 78 18 134/82 12/09/23 00:35 98.1 F 78 18 134/82 12/09/23 00:30 98.1 F 82 18 12/09/23 00:09 98.1 F 82 18 12/09/23 00:08 98.1 F 82 18 12/09/23 00:05 98.1 F 82 18 12/09/23 00:00 98.4 F 76 18 118/69 12/08/23 23:49 98.1 F 82 18 12/08/23 23:35 98.1 F 82 18 12/08/23 23:30 98.1 F 82 18 12/08/23 23:00 98.1 F 82 18 12/08/23 22:45 98.1 F 82 18 12/08/23 22:40 98.1 F 82 18 12/08/23 22:03 98.1 F 82 18 142/83 12/08/23 22:00 69 132/84 12/08/23 21:55 98.1 F 82 18 142/83 12/08/23 21:42 98.1 F 82 18 142/83 12/08/23 21:30 74 18 125/64 12/08/23 21:01 98.1 F 82 18 142/83 12/08/23 21:00 98.1 F 78 18 121/60 12/08/23 20:59 98.1 F 82 18 142/83 12/08/23 20:30 98.1 F 67 18 131/81 12/08/23 20:00 98.1 F 78 18 134/76 12/08/23 19:30 98.1 F 82 18 142/83 12/08/23 19:00 59 L 18 123/78 12/08/23 18:30 59 L 18 123/78 12/08/23 18:00 69 18 124/76 124/76 100 12/08/23 16:00 98.3 F 80 18 120/65 120/65 94 L 12/08/23 14:00 79 18 134/81 134/81 98 12/08/23 12:00 98.0 F 90 18 144/79 144/79 100 12/08/23 11:00 18 12/08/23 10:00 86 18 132/72 132/72 12/08/23 08:00 97.7 F 84 18 122/82 122/82 100 Pain Assessment - Last Documented Pain Intensity [Lower] 4 Pain Intensity 2 Pain Scale Used 0-10 Pain Scale Intake and Output: Intake & Output 12/06/23 12/07/23 12/08/23 12/09/23 11:59 11:59 11:59 11:59 [place] 26118 Output Total 1050 Balance 8985 Weight 78.925 kg Lab Results: Lab Results-Last 24 Hours 12/09/23 Range/Units 03:04 Urine Color Yellow (Yellow) Urine Appearance Clear (Clear) Urine pH 6.5 (4.6-8.0) Ur Specific [place] 1.010 (1.005-1.030) Urine Protein Negative (Negative) Urine Glucose (UA) Negative (Negative) mg/dL Urine Ketones 40 A (Negative) Urine Blood Negative (Negative) Urine Nitrite Negative (Negative) Urine Bilirubin Negative (Negative) Urine Urobilinogen 0.2 (0.2) mg/dL Ur Leukocyte Esterase Negative (Negative) U Hyaline Cast (Auto) NONE SEEN (0-2) /LPF Urine Microscopic RBC 0-2 (0-5) /HPF Urine Microscopic WBC 3-5 (0-5) /HPF Ur Epithelial Cells None Seen (None Seen) /HPF Urine Bacteria None Seen (None Seen) /HPF Urine Culture Reflexed NO (NO) Assessment/Plan (1) with 37 weeks completed gestation Current Visit: Yes Status: Acute Code(s): Z3A.37 - 37 WEEKS GESTATION OF (2) Pre-eclampsia Current Visit: Yes Status: Acute Code(s): O14.90 - UNSPECIFIED PRE- ECLAMPSIA, UNSPECIFIED TRIMESTER
[2023-12-09] MEDS ORDERED: Adacel Vial IM ONE (10:00)
[2023-12-09] MEDS ORDERED: M-M-R II Vaccine With Diluent SQ ONE (10:00)
[2023-12-09] MEDS ORDERED: XYLOCAINE 1% HCL 20 ML MDV IJ PRN (11:17)
[2023-12-09] MEDS ORDERED: Mylicon 80MG PO PRN (12:45)
--- NOTE | 2023-12-09 12:57 | OP ---
OB OP NOTE - OPERATIVE NOTE Surgery Date: 12/09/23 Surgery Time: 12:16 PREOPERATIVE DIAGNOSIS: at 37 and 1. Pre-eclampsia without severe features. POST OPERATIVE DIAGNOSIS: same Procedure: Spntaneous Vaginal Delivery Surgeon: KIMBERLY GUILLEN ANESTHESIA: Epidural by Stephane Obregon ESTIMATED BLOOD LOSS: 75 ml CONDITION: Stable COMPLICATIONS: none SPECIMEN: none HISTORY - HISTORY HISTORY: HISTORY: 23 yo G1 Now P1 who was admitted late on 12/06 to start Medical induction of labor for Pre-eclampsia without severe features. Pre-eclampsia was diagnosed around 35 weeks and she was monitored as outpatient until 37 weeks. She has had mild range BP no severe symptoms. And a 24 hour urine protein was 480. She has had other normal labs and has been followed with outpatient labs weeekly along with twice weekly testing. No other complications of . Her induction was started with Cytotec Po 25 mcg and she had 4 doses. Followed by cervical ripening balloon placed around 3 pm until about 1000 pm last night. She was 4-5 cm after Cevical ripening balloon was removed and she had been on Pitocin at 6 milliunits. The Pitocin was stopped and then she showered and cleaned up was re started at 2340, the patient progressed to 6 cm by 730 am and AROM was performed clear fluid. IUPC was placed. The patinet progressed to completely dilated at 1125 and +1 station. She started pushing at 1151. FINDINGS - FINDINGS FINDINGS: FINDINGS: Female infant delivered OA, Clear Fluid Placenta delivered intact, and was inspected and noted to be intact 3 V cord. APgars 9/9 weight 6-15 3140 gms DESCRIPTION OF PROCEDURE - DESCRIPTION OF PROCEDURE DESCRIPTION OF PROCEDURE: DESCRIPTION OF PROCEDURE: The patient was placed in stirrups and she started pushing at 1151 she continued to push to and then I put on sterile gown and prepped the area. The pt continued to push and the head delivered OA followed by the right anterior shoulder then the left and then the body. The infant was placed to the mother's abdomen and the infant was suctioned both mouth and nares and dried by the nursing staff. The cord was then doubly clamped and then cut by the Rayo CARSON. Pitocin was started for active management of the 3rd stage of labor. The placenta delivered without complications. The vaginal vault was inspected there were bilateral 1st degree labial lacerations right > left. Right labial lac was repaired with 3-0 monocryl in running fashion and there was a 1st degree small perineal lac that was repaired with a figure of 8 suture. Apgars were 9/9 both mom and baby are doing well. Pt's BP remains stable and has been normotensive since epidural no severe range BP's. Weight 6-15 3140 gms.
[2023-12-09] MEDS: TUCKS TP PRN (15:51)
[2023-12-09] MEDS: LANSINOH 40 GM TOP PRN (15:51)
[2023-12-09] MEDS: Dermoplast Spray TP PRN (15:52)
[2023-12-09] MEDS: MOTRIN 400 MG PO PRN (16:53)
[2023-12-09 23:51] VITALS: RESP 18
[2023-12-09] MEDS: Docusate Sodium 100 MG PO SCH (23:52)
[2023-12-10] MEDS: TYLENOL EXTRA STRENGTH 500 MG PO PRN (01:51)
[2023-12-10 05:55] LABS: Absolute Neutrophil Ct (ANC) 9.03 x10^3/uL (1.4-6.9); BASOPHIL % 0.2 % (0.0-0.4); Basophil (Absolute #) 0.03 x10^3/uL (0-0.4); Eosinophil % 1.3 % (0.00-5.0); Eosinophil (Absolute #) 0.16 x10^3/uL (0-0.5); Hematocrit 36.1 % (35-47); Hemoglobin 11.6 g/dL (12.0-16.0); IMMATURE GRAN # 0.06 x10^3u/L (0.00-0.03); IMMATURE GRAN % 0.5 % (0.00-0.4); Lymphocyte (Absolute #) 2.32 x10^3/uL (1.0-4.6); Lymphocytes % 18.5 % (24.0-44.0); Mean Cell Volume 92.6 fL (78-100); Mean Corpuscular Hemoglobin 29.7 pg (26-32); Mean Corpuscular Hgb Concent. 32.1 g/dL (32-36); Mean Platelet Volume 10.7 fL (7.5-11.0); Monocyte (Absolute #) 0.93 x10^3/uL (0.0-1.3); Monocytes % 7.4 % (0.0-12.0); Neutrophil % 72.1 % (36.0-66.0); Platelet Count 202 x10^3/uL (150-450); Red Cell Distribution Width 14.1 % (11.5-14.0); White Blood Count 12.5 x10^3/uL (4.0-10.5)
[2023-12-10 10:21] VITALS: O2SAT 99
[2023-12-10] MEDS: Adacel Vial IM ONE (10:37)
--- NOTE | 2023-12-10 13:07 | PCM.DS ---
Discharge Summary Date of Admission: 12/08/23 07:38 Date of Discharge: 12/10/2023 Admitting Physician: KIMEBRLY GUILLEN DO Consults: Consults on Case 12/09/23 00:59 Notify Anesthesia Provider PRN 12/09/23 12:46 Notify Physician ROUTINE Primary Care Provider: KIMBERLY GUILLEN DO Allergies Allergies No Known Drug Allergies Allergy (Verified 11/30/23 14:18) Hospital Summary - Hospital Course Hospital Course: Pt is a 23 yo G1 now p1 who presented at 37 weeks for Medical induction of labor secondary to pre-eclampsia without severe features. The patient recieived Cytotec x 4 then cervical ripening balloon, and Pitocin and requsted Labor epidural around 2 am on 12/09/2023. ARom was performed around 0745 12/08 and patient progressed to delivery at 1216. She had uncomplicated Female [place] 6-15 Apgars 9/9. Pre-eclampsia labs on admittsion were normal Ante hgb 12.1 discharge HGb 11.6 Discharge BP 124/80. Pt stable and desires discharge. Pt is Breast feeding well baby latching well. Baby doing well and has been discharged by Dr. Pinto. Discharge medications Colace and Ibuprofen. Dis charge instructions given to patient. - Vitals & Intake/Output Vital Signs: Vital Signs Temperature 97.5 F 12/10/23 10:00 Pulse Rate 80 12/10/23 10:00 Respiratory Rate 18 12/10/23 10:00 Blood Pressure 124/80 12/10/23 10:00 O2 Sat by Pulse Oximetry 99 12/10/23 10:00 Intake & Output: Intake & Output 12/08/23 12/09/23 12/10/23 12/11/23 11:59 11:59 11:59 11:59 Intake Total 70775 1400 Output Total 1050 Balance 9105 1400 Weight 78.925 kg - Lab Result Diagrams: 12/10/23 05:51 12/07/23 23:18 Lab Results-Last 24 Hrs: Lab Results-Last 24 Hours 12/10/23 Range/Units 05:51 WBC 12.5 H (4.0-10.5) x10^3/uL RBC 3.90 L (4.1-5.4) x10^6/uL Hgb 11.6 L (12.0-16.0) g/dL Hct 36.1 (35-47) % MCV 92.6 (78-100) fL MCH 29.7 (26-32) pg MCHC 32.1 (32-36) g/dL RDW 14.1 H (11.5-14.0) % Plt Count 202 (150-450) x10^3/uL MPV 10.7 (7.5-11.0) fL Gran % 72.1 H (36.0-66.0) % Immature Gran % (Auto) 0.5 H (0.00-0.4) % Nucleat RBC Rel Count 0.0 (0.00-0.1) % Eos # (Auto) 0.16 (0-0.5) x10^3/uL Immature Gran # (Auto) 0.06 H (0.00-0.03) x10^3u/L Absolute Lymphs (auto) 2.32 (1.0-4.6) x10^3/uL Absolute Monos (auto) 0.93 (0.0-1.3) x10^3/uL Absolute Nucleated RBC 0.00 (0.00-0.01) x10^3u/L Lymphocytes % 18.5 L (24.0-44.0) % Monocytes % 7.4 (0.0-12.0) % Eosinophils % 1.3 (0.00-5.0) % Basophils % 0.2 (0.0-0.4) % Absolute Granulocytes 9.03 H (1.4-6.9) x10^3/uL Basophils # 0.03 (0-0.4) x10^3/uL Discharge Exam General Appearance: no apparent distress, alert Neurologic Exam: alert, oriented x 3, cooperative, normal mood/affect, nml cerebellar function, sensation nml, No motor deficits Eye Exam: PERRL, EOMI, eyes nml inspection Respiratory Exam: normal breath sounds, lungs clear, No respiratory distress Cardiovascular Exam: regular rate/rhythm, normal heart sounds Gastrointestinal/Abdomen Exam: soft, other (FF below U), No tenderness, No mass Extremity Exam: normal inspection, normal range of motion, swelling, other (1 + edema noted) Final Diagnosis/Problem List - Final Discharge Diagnosis/Problem (1) with 37 weeks completed gestation Current Visit: Yes Status: Acute Assessment & Plan: Pt doing well and Baby doing well Breast feeding and Baby latching well. Will discharge home today.. Pt to continur to monitor BP at home and inform if SBP > 150 or DBP > 90. Or if she has any pre-eclampsia symptoms. She will follow up in Monday for a 48 hour follow up here on and and she will see me on Monday late morning. Code(s): Z3A.37 - 37 WEEKS GESTATION OF (2) Pre-eclampsia Current Visit: Yes Status: Acute Code(s): O14.90 - UNSPECIFIED PRE-ECLAM PSIA, UNSPECIFIED TRIMESTER - Discharge Disposition: Home, Self-Care Condition: Stable Prescriptions: No Action Pnv 119/Iron Fum/Folic Acid [ 19 Tablet] 1 each PO DAILY Follow up with: KIMBERLY GUILLEN DO [Primary Care Provider] -
[2023-12-10] MEDS: M-M-R II Vaccine With Diluent SQ ONE (14:04)
[2023-12-10 16:06] VITALS: BP 137/75; PULSE 87; TEMP 98.1
== END 2023-12-10 16:30 | disposition home or self-care (01) | DRG 807 ==
LOC: OB 07:38 → OBSVTOIN 12-09 07:38
PROVIDERS: ADMIT Family Medicine; ATTEND Family Medicine
PROC: 10E0XZZ Delivery of Products of Conception, External Approach (ICD-10-PCS; principal; 2023-12-09)
PROC: 0HQ9XZZ Repair Perineum Skin, External Approach (ICD-10-PCS; 2023-12-09)
DX: O14.94 Unspecified pre-eclampsia, complicating childbirth (principal); Z37.0 Single live birth; O70.0 First degree perineal laceration during delivery; Z3A.37 37 weeks gestation of pregnancy; Z20.828 Contact with and (suspected) exposure to other viral communicable diseases
CPT/HCPCS: 36415; 80053; 80307; 81001; 83615; 84550; 85025; 86850; 86900; 86901; 90471; 90472; 90707; 90715; G0378; J0595; J2550; J2590; A9270-GY